=== PATIENT | male | born 1970 | race Caucasian/White ===

== ENCOUNTER → 2020-07-09 | Outpatient (CLI) | payer OTHER | LOC: MHCPAIN 15:00 | DX: M79.10 Myalgia, unspecified site (principal); M54.6 Pain in thoracic spine; M54.5 Low back pain; M53.3 Sacrococcygeal disorders, not elsewhere classified | CPT/HCPCS: G0463 ==

== ENCOUNTER 2021-01-02 13:14 | Day surgery (SDC) | payer OTHER ==
[~2021-01-02] VITALS: Ht 180.3 cm; Wt 108.8 kg
[2021-01-02] MEDS ORDERED: LIPITOR 40MG TA40 MG PO (13:34)
[2021-01-02] MEDS ORDERED: ZOCOR 40MG40 MG PO (13:34)
[2021-01-02] MEDS ORDERED: ZESTRIL 20MG TA20 MG PO (13:34)
[2021-01-02 13:42] VITALS: BP 129/99; PULSE 88; TEMP 98.3
[2021-01-02 14:45] VITALS: BP 111/89; PULSE 82; TEMP 97.8
--- NOTE | 2021-01-02 14:45 | NUR ---
PATIENT BROUGHT BACK TO [facility] VIA [facility]ART. AMBULATED TO CHAIR WITHOUT DIFFICULTY. PLACED ON MONITORS, VITAL SIGNS STABLE. PATIENT DENIES PAIN OR NAUSEA. REPORT RECIEVED FROM MARCY GERBER, ALL QUESTIONS ANSWERED. REQUESTING JUICE AND MUFFIN. WARM BLANKET PROVIDED, CALL [facility] WITHIN REACH. WILL MONITOR.
[2021-01-02 15:00] VITALS: BP 123/90; PULSE 73
--- NOTE | 2021-01-02 15:00 | NUR ---
VITAL SIGNS REMAIN STABLE. PATIENT TOLERATING FOOD AND DRINK WITHOUT DIFFICULTY. WILL CONTINUE TO MONITOR.
[2021-01-02 15:15] VITALS: BP 124/82; PULSE 68
--- NOTE | 2021-01-02 15:15 | NUR ---
Pt continues to rest. into see pt. Call light within reach.
--- NOTE | 2021-01-02 15:15 | NUR ---
Pt continues to rest. Denies needs. Call light within reach.
[2021-01-02 15:30] VITALS: BP 123/87; PULSE 70
--- NOTE | 2021-01-02 15:30 | NUR ---
Discharge instructions reviewed. Pt voices understanding. IV site discontinued with all parts intact. Pt up to dress. Call light within reach.
--- NOTE | 2021-01-02 15:45 | NUR ---
Pt escorted to car. Pt transported home by an [facility] ambulance driver paramedic.
== END 2021-01-02 15:45 | disposition home or self-care (01) ==
LOC: SDCO 13:14
DX: Z12.11 Encounter for screening for malignant neoplasm of colon (principal); K63.5 Polyp of colon; I10 Essential (primary) hypertension; E78.5 Hyperlipidemia, unspecified; G47.33 Obstructive sleep apnea (adult) (pediatric); F17.210 Nicotine dependence, cigarettes, uncomplicated; Z20.822 Contact with and (suspected) exposure to COVID-19; Z79.899 Other long term (current) drug therapy
CPT/HCPCS: J2704; J7030